=== PATIENT | male | born 1995 | race African-American/Black ===

== ENCOUNTER 2016-10-11 08:19 | Emergency (ER) | payer OTHER ==
[~2016-10-11] VITALS: Ht 170.2 cm; Wt 68.2 kg
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
[2016-10-11] MEDS ORDERED: AUGM875T28 PO ×2 (10:41→10:51)
[2016-10-11 10:45] VITALS: BP 158/77
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
== END 2016-10-11 10:53 | disposition home or self-care (01) ==
LOC: M ED 08:19
DX: S02.401A Maxillary fracture, unspecified side, initial encounter for closed fracture (principal); Y04.8XXA Assault by other bodily force, initial encounter; Y92.89 Other specified places as the place of occurrence of the external cause; Y93.9 Activity, unspecified; Y99.9 Unspecified external cause status; F17.200 Nicotine dependence, unspecified, uncomplicated; J32.0 Chronic maxillary sinusitis; R22.0 Localized swelling, mass and lump, head; J34.1 Cyst and mucocele of nose and nasal sinus